=== PATIENT | female | born 1950 | race Caucasian/White ===

== ENCOUNTER 2017-03-07 15:27 | Emergency (ER) | payer BC, MEDICARE ==
[2017-03-07 15:34] VITALS: BP 132/67
[2017-03-07] MEDS ORDERED: Tetan/Diph/Pertus SYR(Tdap)* 0.5 ML SYR(BOOSTRIX) use SYR IM ONE (15:45)
--- NOTE | 2017-03-07 15:49 | UC ---
Minor Trauma HPI - History of Current Complaint Chief Complaint: CHARYkin Stated Complaint: STEPPED ON KENNY NAIL Hx Obtained From: Patient ?: No Onset/Duration: Sudden Onset - stepped on a kenny nail 30 minutes ago., Still Present Onset Of Pain: Immediate Severity Initially: Mild Severity Currently: Mild Mechanism Of Injury: Penetrating Trauma - nail in a board was stepped on. Aggravating Factor(s): Ambulation, Weight Bearing Alleviating Factor(s): Rest Associated Signs And Symptoms: Positive: Other: - bleeding Related History: Negative: Similar Episode, Occupational Injury - Risk Factors Penetrating Injury Risk Factors: Negative Compartment Syndrome Risk Factors: Pain - Allergies/Home Medications Allergies/Adverse Reactions: Allergies Allergy/AdvReac Type Severity Reaction Status Date / Time No Known Allergies Allergy Verified 03/07/17 15:37 PMH/Surg Hx/FS Hx/Imm Hx Endocrine History: Dyslipidemia Cardiovascular History: Hypertension - Surgical History Surgical History: Yes Surgery Procedure, Year, and Place: tubal, appe - Family History Known Family History: Positive: Cardiac Disease, Hypertension Negative: Diabetes - Social History Occupation: Retired Lives: With Family Alcohol Use: Occasionally Substance Use Type: None Smoking Status (MU): Never Smoked Tobacco Have You Smoked in the Last Year: No - Immunization History Most Recent Tetanus Shot: unknown Review of Systems Skin: Other - puncture wound left foot. All Other Systems Reviewed And Are Negative: Yes Physical Exam Triage Information Reviewed: Yes Appearance: Well-Appearing, No Pain Distress, Well-Nourished Vital Signs: Initial Vital Signs Temp 97.3 F 03/07/17 15:31 Pulse 96 03/07/17 15:31 Resp 18 03/07/17 15:31 BP 132/67 03/07/17 15:31 Pulse Ox 99 03/07/17 15:31 Vital Signs Reviewed: Yes Eyes: Positive: Conjunctiva Clear Neck exam: Normal Respiratory Exam: Normal Cardiovascular Exam: Normal Musculoskeletal Exam: Normal Neurological Exam: Normal Psychological Exam: Normal Skin: Positive: Other - Puncture wound over the 1st metatarsal head. small abrasion over the instep. Minor Trauma Course/Dx - Differential Dx/Diagnosis Differential Diagnosis/HQI/PQRI: Abrasion(s), Contusion(s), Laceration(s) Provider Diagnoses: Puncture wound left foot Discharge - Discharge Plan Condition: Stable Disposition: HOME Prescriptions: Cephalexin CAP* [Keflex 500 CAP*] 500 mg PO QID #10 cap Patient Education Materials: Puncture Wound (ED), Cephalexin (By mouth), Diphtheria/Acellular Pertussis/Tetanus Vaccine (By injection) Images Feet (Multiple View): 1 - Puncture wound 2 - partial thickness abrasion
== END 2017-03-07 16:09 | disposition home or self-care (01) ==
LOC: UCEAST 15:27
DX: S91.332A Puncture wound without foreign body, left foot, initial encounter (principal); W22.8XXA Striking against or struck by other objects, initial encounter; Y93.9 Activity, unspecified; Y92.9 Unspecified place or not applicable; Y99.9 Unspecified external cause status; Z23 Encounter for immunization; I10 Essential (primary) hypertension; E78.5 Hyperlipidemia, unspecified
CPT/HCPCS: 90471; 90715; 96372; 99203; G0463

== ENCOUNTER 2017-11-16 11:08 | Emergency (ER) | payer MEDICARE, BC ==
[2017-11-16 11:50] VITALS: BP 152/73
--- NOTE | 2017-11-16 12:00 | UC ---
Lower Extremity/Ankle HPI - HPI Summary HPI Summary: Pt presents with right knee and ankle pain s/p falling last night. She tells me that she was walking down her basement steps and missed the last step. Turned her right ankle and knee and landed awkwardly on her right knee. Took ibuprofen last night with good relief, but was still painful this morning so she wanted to be sure she didn't break anything. She is able to ambulate without assistance with only mild pain. Denies numbness or tingling. - History of Current Complaint Chief Complaint: UCLowerExtremity Stated Complaint: FELL ANKLE/THUMB/KNEE INJURY Time Seen by Provider: 11/16/17 12:00 Hx Obtained From: Patient Severity Initially: Mild Severity Currently: Mild Pain Intensity: 3 Pain Scale Used: 0-10 Numeric Able to Bear Weight: Yes - Allergies/Home Medications Allergies/Adverse Reactions: Allergies Allergy/AdvReac Type Severity Reaction Status Date / Time No Known Allergies Allergy Verified 11/16/17 11:50 Home Medications: Home Medications Glucosamine Sulfate Dipot Chlr [Glucosamine] 1 tab PO DAILY 11/16/17 [History Confirmed 11/16/17] Multivitamin [Multivitamins] 1 cap DAILY 11/16/17 [History Confirmed 11/16/17] PMH/Surg Hx/FS Hx/Imm Hx Previously Healthy: Yes Cardiovascular History: Hypertension - Surgical History Surgical History: Yes Surgery Procedure, Year, and Place: tubal, appe - Family History Known Family History: Positive: Cardiac Disease, Hypertension Negative: Diabetes - Social History Occupation: Retired Lives: With Family Alcohol Use: Occasionally Substance Use Type: None Smoking Status (MU): Never Smoked Tobacco Have You Smoked in the Last Year: No - Immunization History Most Recent Tetanus Shot: unknown Review of Systems Constitutional: Negative Skin: Negative Respiratory: Negative Cardiovascular: Negative Gastrointestinal: Negative Neurovascular: Negative Musculoskeletal: Other: - Right knee and ankle pain Neurological: Negative Psychological: Negative All Other Systems Reviewed And Are Negative: Yes Physical Exam Triage Information Reviewed: Yes Appearance: Well-Appearing, No Pain Distress, Well-Nourished Vital Signs: Initial Vital Signs Temp 98.2 F 11/16/17 11:45 Pulse 84 11/16/17 11:45 Resp 16 11/16/17 11:45 BP 152/73 11/16/17 11:45 Pulse Ox 99 11/16/17 11:45 Vital Signs Reviewed: Yes Neck: Positive: Supple, Nontender, No Lymphadenopathy Respiratory: Positive: Normal breath sounds, No respiratory distress, No accessory muscle use Cardiovascular: Positive: RRR, No Murmur, Pulses Normal - Right DP and TP, Brisk Capillary Refill - Right foot Musculoskeletal: Positive: Strength Intact - Right knee and ankle, ROM Intact - Right knee and ankle, Edema @ - Right medial ankle, Other: - Right ankle: TTP over posterior and superior medial malleolus. No obvious bony deformities. Right knee: Mild edema. NTTP Neurological: Positive: Alert, Other: - Sensations intact right LE Psychological: Positive: Age Appropriate Behavior Skin: Negative: rashes, significant lesion(s) Lower Extremity Course/Dx - Course Course Of Treatment: Knee and ankle XR: IMPRESSION: NO ACUTE OSSEOUS INJURY. IF SYMPTOMS PERSIST, RECOMMEND REPEAT IMAGING. Suspect ankle sprain/knee contusion. Gel ankle splint and RICE therapy - Differential Dx/Diagnosis Provider Diagnoses: Right ankle sprain. Right knee contusion Discharge - Discharge Plan Condition: Stable Disposition: HOME Patient Education Materials: Ankle Sprain (ED) Referrals: Esthela Hauser NP [Primary Care Provider] - Additional Instructions: If you develop a fever, shortness of breath, chest pain, new or worsening symptoms - please call your PCP or go to the ED. Your blood pressure was mildly elevated at todays visit. Please see your primary provider within 4 weeks for recheck and re-evaluation. 1) Rest, Ice, and elevate your knee/ankle as much as possible over the next 24- 48 hours. 2) May take ibuprofen 600mg every 6-8 hours as needed for pain and swelling
--- NOTE | 2017-11-16 12:57 | RAD ---
HISTORY: Right ankle pain, fall COMPARISONS: None VIEWS: 3, Frontal, lateral, and oblique views of the right ankle FINDINGS: BONE DENSITY: Normal. BONES: There is no displaced fracture. There are calcaneal enthesophytes. JOINTS: There is no arthropathy. ALIGNMENT: There is no dislocation. SOFT TISSUES: Unremarkable. OTHER FINDINGS: None. IMPRESSION: NO ACUTE OSSEOUS INJURY. IF SYMPTOMS PERSIST, RECOMMEND REPEAT IMAGING.
--- NOTE | 2017-11-16 12:58 | RAD ---
HISTORY: Right knee pain, fall COMPARISONS: None VIEWS: 4, Frontal, lateral, axial, and oblique views FINDINGS: BONE DENSITY: Normal. BONES: There is no displaced fracture. There are superior and inferior patellar enthesophytes. JOINTS: There is mild tricompartmental osteoarthritis. There is no suprapatellar joint effusion or lipohemarthrosis. ALIGNMENT: There is no dislocation. SOFT TISSUES: Unremarkable. OTHER FINDINGS: None. IMPRESSION: NO ACUTE OSSEOUS INJURY. IF SYMPTOMS PERSIST, RECOMMEND REPEAT IMAGING.
== END 2017-11-16 13:26 | disposition home or self-care (01) ==
LOC: UCEAST 11:08
DX: S93.401A Sprain of unspecified ligament of right ankle, initial encounter (principal); S80.01XA Contusion of right knee, initial encounter; W10.9XXA Fall (on) (from) unspecified stairs and steps, initial encounter; Y93.89 Activity, other specified; Y92.008 Other place in unspecified non-institutional (private) residence as the place of occurrence of the external cause; I10 Essential (primary) hypertension
CPT/HCPCS: 99212; G0463

== ENCOUNTER 2018-05-18 10:24 | Inpatient (IN) | payer MEDICARE, BC ==
--- NOTE | 2018-05-10 13:14 | HP ---
HISTORY AND PHYSICAL: DATE OF ADMISSION/SURGERY: 05/18/18 DATE OF OFFICE VISIT: 05/10/18 SURGEON: Sallie Baugh MD * (DICTATED BY TERRANCE ALFORD) PROCEDURE: Right total knee arthroplasty. CHIEF COMPLAINT: Right knee pain. HISTORY OF PRESENT ILLNESS: Ms. Maguire is a 67-year-old female with complaints of right knee pain. She has failed conservative treatment and elected to proceed with a right total knee arthroplasty, which is scheduled for 05/18/18. PAST MEDICAL HISTORY: Hypertension, high cholesterol. PAST SURGICAL HISTORY: Tubal ligation. CURRENT MEDICATIONS: 1. Meloxicam 15 mg daily. 2. Fosinopril sodium 10 mg daily. 3. Atorvastatin calcium 10 mg daily. 4. Mariia. 5. Glucosamine/chondroitin. 6. Aspirin 81 mg daily. ALLERGIES: To DAIRY. FAMILY HISTORY: Heart disease, cancer, and aneurysm. SOCIAL HISTORY: She is a 67-year-old female. She lives with her . She does not smoke or use drugs. Uses occasional alcohol. REVIEW OF SYSTEMS: A complete 14-point review of systems was reviewed with the patient. It was negative for DVT, PE, hepatitis, HIV, or anesthesia problems. PHYSICAL EXAMINATION GENERAL: She is well-developed, well-nourished, in no acute distress. VITAL SIGNS: She stands 5 feet 5 inches tall, weighs 190 pounds, blood pressure 124/60, heart rate 72. HEENT: Normocephalic, atraumatic. NECK: Supple. No palpable lymph nodes. PULMONARY: Lungs are clear to auscultation bilaterally. CARDIO: Regular rate and rhythm. Strong S1, S2. ABDOMEN: Soft, nontender, nondistended. NEUROLOGICAL: She is alert and oriented x3. MUSCULOSKELETAL: Right lower extremity: The skin is intact. There are no open wounds or abrasions. There is a moderate joint effusion. She has some tenderness over the medial and lateral joint line. Range of motion is 10 to 130 degrees of flexion with patellofemoral crepitus. No varus or valgus instability. 2+ dorsalis tibialis pulse. Intact sensation in her lower extremity. Muscle group strengths are intact at 5/5. ASSESSMENT AND PLAN: Ms. Maguire is a 67-year-old female with end-stage osteoarthritis of the right knee. She has failed conservative treatment and elected to proceed with a right total knee arthroplasty, which is scheduled for 05/18/18, with Dr. Baugh. Dr. Baugh discussed the risks and benefits of the surgery at today's visit and all of her questions were answered. She will follow up with Dr. Baugh 2 weeks after the surgery. TERRANCE ALFORD [id number]/[facility] #: [id number] [facility]
[~2018-05-18 10:24] MED LIST: Buffered Lidocaine 0.9% SYRIN* 5 ML/SYR SYRINGE INTRADERM ONE; Dexamethasone IV* 4 MG/ML 1 ML (4 MG) IV SLOW PU ONE; Famotidine IV* 10 MG/ML 2 ML (20 mg) IV ONE; ROPIVACAINE 5 MG/ML 30 ML BTL (0.5%) ONE
--- OUTSIDE RECORDS SUMMARY | 2018-05-18 10:28 | XMS REPORT ---
:1950 External Reference #:[id number] Author Organization [facility] Address [address] [place] [address] [place] [address] Phone [phone] Care Team Providers Name Role Phone Karyn Simpson MD Primary Care Physician Unavailable Payers Type Date Identification Numbers Payment Provider Subscriber Medicare Primary Policy Number: [id number] Medicare Edith Maguire PayID: [id number] [address] [place] [address] Medigap Part B Expires: 2018 Policy Number: [id number] Medicare Edith Maguire PayID: [id number] [address] [place] [address] Medigap Part B Policy Number: [id number] [facility] Edith Maguire PayID: [id number] [address] [place] [address] Problems Date Description Provider Status Onset: 03/08/2018 Essential hypertension Alexander Bosch NP Active Onset: 03/08/2018 Hyperlipidemia Alexander Bosch NP Active Onset: 03/08/2018 Chronic back pain Alexander Bosch NP Active Onset: 03/17/2018 Localized, primary osteoarthritis Sallie Baugh M.D. Active Family History Date Family Member(s) Problem(s) Comments Father due to Lung Cancer () Father Heart Disease Mother Alzheimer's Disease Mother Heart Disease 89 Siblings 4 3 sisters: 1 with heart disease; 1 brain aneurysm 1 brother: [place] Social History Type Date Description Comments Marital Status Lives With Spouse Occupation Retired ETOH Use Occasionally consumes alcohol Smoking Patient has never smoked Exercise Type/Frequency Exercises sporadically Allergies, Adverse Reactions, Alerts Date Description Reaction Status Severity Comments 03/08/2018 Dairy stomach pains, diarrhea active Medications Medication Date Status Form Strength Qnty SIG Indications Ordering Provider Meloxicam Active Tablets 15mg 14tabs take 1 Sallie 018 tab by edin Baugh M.D. with food once a day Fosinopril Active Tablets 10mg 90tabs 1 by Alexander Sodium 018 mouth Hiro, [employer] every day Atorvastatin Active Tablets 10mg 90tabs 1 by Alexander Calcium 018 mouth JYOTI Bosch every day Mariia Allergy Active Tablets 180mg 1 by Unknown 000 mouth every day Glucosamine Active Capsules 1500Com 1 by Unknown Chondroitin 000 mouth 1500 Complex twice a day Aspirin 81 Low Active Chewtabs 81mg 1 by Unknown Dose 000 mouth nightly Medications Administered in Office Medication Date Status Form Strength Qnty SIG Indications Ordering Provider Depomedrol Administered Injection Sallie 40MG 018 Liliya Baugh Depomedrol Administered Injection Sallie 40MG 018 Liliya Baugh Vital Signs Date Vital Result Comment 05/10/2018 Height 65 inches 5'5" Weight 190.00 lb Heart Rate 72 /min BP Systolic 124 mmHg BP Diastolic 60 mmHg BMI (Body Mass Index) 31.6 kg/m2 04/28/2018 Height 65 inches 5'5" Weight 193.00 lb BP Systolic 142 mmHg BP Diastolic 82 mmHg Respiratory Rate 18 /min Body Temperature 97.1 F Pain Level 1 BMI (Body Mass Index) 32.1 kg/m2 04/15/2018 Height 65 inches 5'5" Weight 193.00 lb Heart Rate 68 /min BP Systolic 128 mmHg BP Diastolic 66 mmHg Body Temperature 97.2 F O2 % BldC Oximetry 96 % BMI (Body Mass Index) 32.1 kg/m2 03/17/2018 Height 65 inches 5'5" Weight 195.00 lb BP Systolic 111 mmHg BP Diastolic 76 mmHg Respiratory Rate 15 /min Pain Level 5 BMI (Body Mass Index) 32.4 kg/m2 03/08/2018 Height 65.5 inches 5'5.50" Weight 199.50 lb Heart Rate 72 /min BP Systolic 171 mmHg BP Diastolic 85 mmHg BP Systolic Recheck 160 mmHg BP Diastolic Recheck 88 mmHg Body Temperature 97.5 F O2 % BldC Oximetry 99 % BMI (Body Mass Index) 32.7 kg/m2 Results Test Date Test Result H/L Range Note Comp Metabolic Panel 05/10/2018 Sodium 141 mmol/L 135-145 Potassium 4.2 mmol/L 3.5-5.0 Chloride 103 mmol/L 101-111 Co2 Carbon Dioxide 29 mmol/L 22-32 Anion Gap 9 mmol/L 2-11 Glucose 93 mg/dL 70-100 Blood Urea Nitrogen 18 mg/dL 6-24 Creatinine 0.73 mg/dL 0.51-0.95 BUN/Creatinine Ratio 24.7 High 8-20 Calcium 9.7 mg/dL 8.6-10.3 Total Protein 6.9 g/dL 6.4-8.9 Albumin 4.4 g/dL 3.2-5.2 Globulin 2.5 g/dL 2-4 Albumin/Globulin Ratio 1.8 1-3 Total Bilirubin 0.70 mg/dL 0.2-1.0 Alkaline Phosphatase 79 U/L 34-104 Alt 17 U/L 7-52 Ast 19 U/L 13-39 Egfr Non- 79.3 >60 Egfr 95.9 >60 1 CBC Auto Diff 05/10/2018 White Blood Count 7.2 10^3/uL 3.5-10.8 Red Blood Count 4.29 10^6/uL 4.00-5.40 Hemoglobin 13.5 g/dL 12.0-16.0 Hematocrit 40 % 35-47 Mean Corpuscular Volume 92 fL 80-97 Mean Corpuscular Hemoglobin 31 pg 27-31 Mean Corpuscular HGB Conc 34 g/dL 31-36 Red Cell Distribution Width 14 % 10.5-15 Platelet Count 276 10^3/uL 150-450 Mean Platelet Volume 6.8 um3 Low 7.4-10.4 Abs Neutrophils 4.8 10^3/uL 1.5-7.7 Abs Lymphocytes 1.7 10^3/uL 1.0-4.8 Abs Monocytes 0.5 10^3/uL 0-0.8 Abs Eosinophils 0.1 10^3/uL 0-0.6 Abs Basophils 0.1 10^3/uL 0-0.2 Abs Nucleated RBC 0 10^3/uL Granulocyte % 67.4 % 38-83 Lymphocyte % 23.1 % Low 25-47 Monocyte % 6.9 % 0-7 Eosinophil % 1.8 % 0-6 Basophil % 0.8 % 0-2 Nucleated Red Blood Cells % 0 Inr/Protime 05/10/2018 Inr 0.87 0.77-1.02 Laboratory test finding 05/10/2018 Partial Thrombo Time 30.8 seconds 26.0 -36.3 PTT Type & Screen 05/10/2018 Patient Blood Type A Positive Antibody Screen NEGATIVE Urinalysis Profile 05/10/2018 Urine Color Yellow Urine Appearance Cloudy Urine Specific Colbert 1.020 1.010-1.030 Urine pH 5.0 5-9 Urine Urobilinogen Negative Negative Urine Ketones Negative Negative Urine Protein Negative Negative Urine Leukocytes Negative Negative Urine Blood Negative Negative * * Negative 2 Urine Nitrite Negative Negative Urine Bilirubin Negative Negative Urine Glucose Negative Negative 1 Because ethnic data is not always readily available, this report includes an eGFR for both -Americans and non- Americans. The National Kidney Disease Education Program (NKDEP) does not endorse the use of the MDRD equation for patients that are not between the ages of 18 and 70, are , have extremes of body size, muscle mass, or nutritional status, or are non- or non-. According to the National Kidney Foundation, irrespective of diagnosis, the stage of the disease is based on the level of kidney function: Stage Description GFR(mL/min/1.73 m(2)) 1 Kidney damage with normal or decreased GFR 90 2 Kidney damage with mild decrease in GFR 60-89 3 Moderate decrease in GFR 30-59 4 Severe decrease in GFR 15-29 5 Kidney failure <15 (or dialysis) 2 *Ascorbic acid is present which may interfere with detection of blood. Procedures Date CPT Code Description Status Comment 04/28/2018 Inj/Aspir Major JT Or Bursa Completed W/ US 03/17/2018 08492 Inject/Drain Joint/Bursa Completed Major W/O US 03/28/2013 44987 Myocardial Perfusion Imaging Completed Tomographic (Spect) Multiple Studies 03/27/2013 25585 Treadmill Interp/Report Only Completed 03/27/2013 13346 Stress Test Supervsn W/Out Completed I/R 10/05/2007 Colonoscopy Completed Per past records, 5 yr f/u recommended Encounters Type Date Location Provider CPT E/M Dx Office Visit 04/28/2018 [facility] Sallie Amauri, M.D. 58269 M25.561 10:15a [facility] M25.551 M16.11 M17.11 Office Visit 04/15/2018 9:20a [facility] [place] [address] I10 - [place] Office Visit 03/17/2018 9:30a [facility] Sallie Baugh M.D. 85932 M25.561 [facility] M25.461 M17.11 W19.xxxA Office Visit 03/08/2018 3:00p [facility] [place] [address] [address] [place] M25.561 W19.xxxA Office Visit 03/27/2013 1:20p [facility] Bart Lundy M.D. 07307 786.51 Hospitalists 401.9 272.4 Office Visit 03/27/2013 11:07a [facility] Carolynn Kathleen, [address] 794.31 Liliya 786.50 401.1 272.4 Office Visit 03/26/2013 1:19p [facility], [place] [address] 786.51 Hospitalists 401.9 272.4 Plan of Care Future Appointment(s):05/28/2018 10:45 am - Sallie Baugh M.D. at [facility]05/12/2018 2:00 pm - Alexander Bosch NP at [facility]05/18/2018 11:30 am - Christopher Jordan PA-C at [facility]05/18/2018 11:30 am - TERRANCE Tomlinson at [facility]05/18/2018 11:30 am - Sallie Baugh M.D. at [facility]04/18/2019 11:00 am - Alexander Bosch NP at [facility]05/10/2018 - Sallie Baugh M.D.M25.561 Pain in right kneeFollow up: Follow up: 2 weeks after ytnyngyV68.461 Effusion, right kneeM17.11 Unilateral primary osteoarthritis, right knee
--- OUTSIDE RECORDS SUMMARY | 2018-05-18 10:28 | XMS REPORT ---
:1950 External Reference #:[id number] Author Organization [facility] Address [address] [place] [address] [place] [address] Phone [phone] Care Team Providers Name Role Phone Karyn Simpson MD Primary Care Physician Unavailable Payers Type Date Identification Numbers Payment Provider Subscriber Medicare Primary Policy Number: [id number] Medicare Edith Maguire PayID: [id number] [address] [place] [address] Medigap Part B Policy Number: [id number] [facility] Edith Maguire PayID: [id number] [address] [place] [address] Problems Date Description Provider Status Onset: 03/08/2018 [...] heart disease; 1 brain aneurysm 1 brother: [place] Social History Type Date Description Comments Marital [...] 90tabs 1 by Alexander Sodium 018 mouth JYOTI Bosch every day Atorvastatin Active Tablets 10mg 90tabs [...] Baugh Vital Signs Date Vital Result Comment 04/28/2018 Height 65 inches 5'5" Weight 193.00 [...] BMI (Body Mass Index) 32.7 kg/m2 Results Description No Information Procedures Date CPT Code Description Status 04/28/2018 Inj/Aspir Major JT Or Bursa W/ US Completed 03/17/2018 Inject/Drain Joint/Bursa Major W/O US Completed 03/28/2013 97360 Myocardial Perfusion Imaging Tomographic (Spect) Completed Multiple Studies 03/27/2013 23756 Treadmill Interp/Report Only Completed 03/27/2013 63864 Stress Test Supervsn W/Out I/R Completed Encounters Type Date Location Provider CPT E/M Dx Office Visit 04/28/2018 [facility] Sallie Baugh M.D. 63767 M25.561 10:15a Of [facility] M25.551 M16.11 M17.11 Office Visit 04/15/2018 9:20a [facility] [place] [address] [address] - [place] Office Visit 03/17/2018 9:30a [facility] Sallie Baugh M.D. 57854 M25.561 James M25.461 M17.11 W19.xxxA Office Visit 03/08/2018 3:00p [facility] [place] [address] [address] [place] M25.561 W19.xxxA Office Visit 03/27/2013 1:20p [facility], Bart Lundy M.D. 03569 786.51 Hospitalists 401.9 272.4 Office Visit 03/27/2013 11:07a [facility] Carolynn Kathleen, [address] 794.31 Liliya 786.50 401.1 272.4 Office Visit 03/26/2013 1:19p [facility], [place] [address] 786.51 Hospitalists 401.9 272.4 Plan of Care Future Appointment(s):05/10/2018 9:15 am - Sallie Baugh M.D. at [facility]/18/2019 11:00 am - Alexander Bosch NP at [facility] Internal Medicine [facility]04/28/2018 - Sallie Baugh M.D.M25.561 Pain in right kneeFollow up: Follow up: 7-10 days before yghckcgD34.551 Pain in right hipNew Xrays:Hip Right 2 Views And Pelvis 54743 - 29745N27.11 Unilateral primary osteoarthritis, right hipM17.11 Unilateral primary osteoarthritis, right knee
--- OUTSIDE RECORDS SUMMARY | 2018-05-18 10:28 | XMS REPORT ---
:1950 External Reference #:[id number] Author Organization [facility] Address [address] [facility] [address] [place] [address] Phone [phone] Care Team Providers Name Role Phone Karyn Simpson MD Primary Care Physician Unavailable Payers Type Date Identification Numbers Payment Provider Subscriber Medicare Primary Policy Number: [id number] Medicare Edith Maguire PayID: [id number] [address] [place] [address] Medigap Part B Expires: 2018 Policy Number: [id number] Medicare Edith Maguire PayID: [id number] [address] [place] [address] Medigap Part B Policy Number: [id number] [facility] Edith Maguire PayID: [id number] [address] [place] [address] Problems Date Description Provider Status Onset: 03/08/2018 Essential hypertension Alexnader Bosch NP Active Onset: 03/08/2018 Hyperlipidemia Alexander [...] heart disease; 1 brain aneurysm 1 brother: [place] Social History Type Date Description Comments Marital [...] 1 by Alexander Sodium 018 mouth Hiro, [employer] every day Atorvastatin Active Tablets 10mg 90tabs [...] Information Procedures Date CPT Code Description Status Comment 04/28/2018 Inj/Aspir Major JT Or Bursa Completed W/ US 03/17/2018 Inject/Drain Joint/Bursa Completed Major W/O US 03/28/2013 35501 Myocardial Perfusion Imaging Completed Tomographic (Spect) Multiple Studies 03/27/2013 08150 Treadmill Interp/Report Only Completed 03/27/2013 04704 Stress Test Supervsn W/Out Completed I/R 10/05/2007 Colonoscopy Completed Per past records, 5 yr f/u recommended Encounters Type Date Location Provider CPT E/M Dx Office Visit 04/28/2018 [facility] Sallie Baugh M.D. 15758 M25.561 10:15a [facility] M25.551 M16.11 M17.11 Office Visit 04/15/2018 9:20a [facility] [place] [address] I10 [facility] Office Visit 03/17/2018 9:30a [facility] Sallie Baugh M.D. 61603 M25.561 C.MGuido M25.461 M17.11 W19.xxxA Office Visit 03/08/2018 3:00p [facility] [place] [address] M25.561 W19.xxxA Office Visit 03/27/2013 1:20p [facility],vianca Lundy M.D. 62447 786.51 Hospitalists 401.9 272.4 Office Visit 03/27/2013 11:07a [facility] Ryantayovani Kathleen [address] 794.31 Liliya 786.50 401.1 272.4 Office Visit 03/26/2013 1:19p [facility],[place] [address] 786.51 Hospitalists 401.9 272.4 Plan of Care Future Appointment(s):05/28/2018 10:45 am - Sallie Baugh M.D. at [facility].M.AMichael05/12/2018 2:00 pm - Alexander Bosch NP at [facility]05/18/2018 11:30 am - Christopher Jordan PA-C at [facility].05/18/2018 11:30 am - TERRANCE Tomlinson at [facility].05/18/2018 11:30 am - Sallie Baugh M.D. at [facility].04/18/2019 11:00 am - Alexander Bosch NP at [facility]05/10/2018 - Sallie Baugh M.D.M25.561 Pain in right kneeFollow up: Follow up: 2 weeks after inapdffU15.461 Effusion, right kneeM17.11 Unilateral primary osteoarthritis, right knee
--- OUTSIDE RECORDS SUMMARY | 2018-05-18 10:28 | XMS REPORT ---
:1950 External Reference #:[id number] Author Organization [facility] Address [address] [place] [address] [place] [address] Phone [phone] Care Team Providers Name Role Phone Karyn Simpson MD Primary Care Physician Unavailable Payers Type Date Identification Numbers Payment Provider Subscriber Medicare Primary Policy Number: [id number] Medicare Edith Maguire PayID: [id number] [address] [place] [address] Medigap Part B Expires: 2018 Policy Number: [id number] Medicare Edith Maguire PayID: [id number] [address] [place] [address] Medigap Part B Policy Number: [id number] [facility] Edith Maguire PayID: [id number] [address] [place] [address] Problems Date Description Provider Status Onset: 03/08/2018 Essential hypertension Alexander Bosch NP Active Onset: 03/08/2018 Hyperlipidemia Alexander Bosch NP Active Onset: 03/08/2018 Chronic back pain Alexander Bosch NP Active Onset: 03/17/2018 Localized, primary osteoarthritis Sallie aBugh M.D. Active Family History Date Family Member(s) Problem(s) Comments Father due to Lung Cancer () Father Heart Disease Mother Alzheimer's Disease Mother Heart Disease 89 Siblings 4 3 sisters: 1 with heart disease; 1 brain aneurysm 1 brother: [place] Social History Type Date Description Comments Marital Status Lives With Spouse Occupation Retired ETOH Use Occasionally consumes alcohol Smoking Patient has never smoked Recreational Drug Use Never Used Drugs Daily Caffeine Consumes on average 2 cups of regular coffee per day Exercise Type/Frequency Exercises sporadically hiking , walking house chores, takes care of grandkids Allergies, Adverse Reactions, Alerts Date Description Reaction Status Severity Comments 03/08/2018 Dairy stomach pains, diarrhea active Medications Medication Date Status Form Strength Qnty SIG Indications Ordering Provider Meloxicam Active Tablets 15mg 14tabs take 1 Sallie 018 tab by edin Baugh M.DMichael with food once a day Fosinopril Active Tablets 10mg 90tabs 1 by Alexander Sodium 018 mouth Hiro, RN MEDICARE every day Atorvastatin Active Tablets 10mg 90tabs 1 by Alexander Calcium 018 mouth Hiro, RN MEDICARE every day Mariia Allergy Active Tablets 180mg 1 by Unknown 000 mouth every day Glucosamine Active Capsules 1500Com 1 by Unknown Chondroitin 000 mouth 1500 Complex twice a day Aspirin 81 Low Active Chewtabs 81mg 1 by Unknown Dose 000 mouth nightly Tylenol PM Active Tablets take one Unknown 000 tablet/ca psule by mouth at bedtime. as needed for pain Medications Administered in Office Medication Date Status Form Strength Qnty SIG Indications Ordering Provider Depomedrol Administered Injection Sallie 40MG Andres Baugh M.D. Depomedrol Administered Injection Sallie 40MG 018 Liliya Baugh Immunizations CPT Code Status Date Vaccine Lot # [id number] Given 05/12/2017 Tetanus And Diptheria (Td) For Adult Use Preservative Free Vital Signs Date Vital Result Comment 05/12/2018 Height 65 inches 5'5" Weight 189.00 lb Heart Rate 84 /min BP Systolic Sitting 118 mmHg BP Diastolic Sitting 62 mmHg O2 % BldC Oximetry 99 % BMI (Body Mass Index) 31.4 kg/m2 05/10/2018 Height 65 inches 5'5" Weight 190.00 [...] Color Yellow Urine Appearance Cloudy Urine Specific [place] 1.020 1.010-1.030 Urine pH 5.0 5-9 Urine Urobilinogen Negative Negative Urine Ketones Negative Negative Urine Protein Negative Negative Urine Leukocytes Negative Negative Urine Blood Negative Negative * * Negative 2 Urine Nitrite Negative Negative Urine Bilirubin Negative Negative Urine Glucose Negative Negative Urine Culture And Sensitivities 05/10/2018 Urine Culture SEE RESULT BELOW 3 1 Because ethnic data is not always [...] which may interfere with detection of blood. 3 SEE RESULT BELOW Name: EDITH MAGUIRE : [address]: Sallie Baugh MD Acct: [id number] Unit: [id number] AGE: 67 Location: [facility] Re05/10/18 SEX: F Status: REG REF SPEC: [id number] JOEL: 05/10/[address] [facility] [address]: Sallie Baugh MD REQ: [id number] RECD: 05/10/18 STATUS: EVELYN CANTOR DR: Alexander Bosch RN MEDICARE _ SOURCE: URINE SPDESC: ORDERED: Urine Culture Procedure Result Reported Site Urine Culture Final 05/11/18- 0910 ML No growth of clinically significant organisms * ML - Main Lab . END OF REPORT DEPARTMENT OF PATHOLOGY, [address] [place] [address] Narinder Spear M.D. Director [facility] # [id number] Procedures Date CPT Code Description Status Comment 04/28/2018 Inj/Aspir Major JT Or Bursa Completed W/ US 03/17/2018 Inject/Drain Joint/Bursa Completed Major W/O US 03/28/2013 35307 Myocardial Perfusion Imaging Completed Tomographic (Spect) Multiple Studies 03/27/2013 11377 Treadmill Interp/Report Only Completed 03/27/2013 43022 Stress Test Supervsn W/Out Completed I/R 10/05/2007 Colonoscopy Completed Per past records, 5 yr f/u recommended Encounters Type Date Location Provider CPT E/M Dx Office Visit 04/28/2018 [facility] Sallie Baugh M.D. 15324 M25.561 10:15a Of [facility]. M25.551 M16.11 M17.11 Office Visit 04/15/2018 9:20a [facility] [place] [address] I10 - Mark Office Visit 03/17/2018 9:30a [facility] Sallie Baugh M.D. 05629 M25.561 C.M.A. M25.461 M17.11 W19.xxxA Office Visit 03/08/2018 3:00p [facility] Internal [place] [address] I1Gwendolyn Flores M25.561 W19.xxxA Office Visit 03/27/2013 1:20p [facility],pc Bart Lundy M.D. 51252 786.51 Hospitalists 401.9 272.4 Office Visit 03/27/2013 11:07a [facility] Elsy Kathleen, 28255 794.31 MPeggy 786.50 401.1 272.4 Office Visit 03/26/2013 1:19p [facility],pc Jodie Morales, 68381 786.51 Hospitalists 401.9 272.4 Plan of Care Future Appointment(s):05/28/2018 10:45 am - Sallie Baugh M.D. at [facility].05/18/2018 11:30 am - Christopher Jordan PA-C at [facility].05/18/2018 11:30 am - TERRANCE Tomlinson at [facility].05/18/2018 11:30 am - Sallie Baugh M.D. at [facility].04/18/2019 11:00 am - Alexander Bosch NP at [facility] Internal Medicine - Nrobnqkyc75/08/2018 - Jacy Schaffer M.D.Z01.818 Encounter for other preprocedural examinationComments:Undergoing elective R knee replacement surgery , no acute coronary syndrome , low risk for major adverse events , advised patient to proceed with upcoming procedure, to consider anticoagulation after the knee surgery given immobilization per Dr. Baugh Stop Meloxicam and aspirin at least a week before the surgery , use tylenol for pain CC to Dr. BaughM17.11 Unilateral primary osteoarthritis, right kneeComments:plan per Dr. BaughI10 Essential (primary) uvflduymjnteS11.5 Hyperlipidemia, unspecifiedComments:stable on statin
[2018-05-18] MEDS ORDERED: Dexamethasone IV* 4 MG/ML 1 ML (4 MG) ONE (10:40)
[2018-05-18] MEDS ORDERED: Famotidine IV* 10 MG/ML 2 ML (20 mg) ONE (10:40)
[2018-05-18] MEDS ORDERED: ceFAZolin 2 GM PREMIX (*) 2 GM/50 ML BAG IVPB ONE (10:41)
[2018-05-18] MEDS ORDERED: Tranexamic Acid 1,000 MG/10 ML 1,000 MG in NS 0.9% 100 ML* 100 ML IV ONE (11:00)
[2018-05-18] MEDS ORDERED: Midazolam* 1 MG/ML 2 ML VIAL (2 MG) ONE (11:03)
[2018-05-18] MEDS ORDERED: fentaNYL* 50 MCG/ML 2 ML VIAL (100 MCG VIAL) ONE ×3 (11:03→16:25)
[2018-05-18] MEDS ORDERED: Gabapentin CAP(*) 300 MG PO ONE (12:12)
[2018-05-18] MEDS ORDERED: celeCOXIB CAP* 200 MG PO ONE (12:12)
[2018-05-18] MEDS ORDERED: ROPIVACAINE 5 MG/ML 30 ML BTL (0.5%) ONE (12:27)
[2018-05-18] MEDS ORDERED: Gabapentin CAP(*) 300 MG ONE (12:29)
[2018-05-18] MEDS ORDERED: celeCOXIB CAP* 100 MG ONE (12:29)
[2018-05-18] MEDS ORDERED: Lidocaine 2% PF * 5 ML VIAL ONE (12:29)
[2018-05-18] MEDS ORDERED: KETAMINE HCL* 50 MG/ML 10 ML VIAL ONE (13:57)
[2018-05-18] MEDS ORDERED: HYDROmorphone INJ* 0.5 MG/0.5 ML SYRINGE IV PRN (15:09)
[2018-05-18] MEDS ORDERED: DiMENhydriNATE IV* 50 MG/ML VIAL IV PUSH PRN (15:09)
[2018-05-18] MEDS ORDERED: Naloxone* 0.4 MG/ML 1 ML VIAL IV PRN (15:09)
[2018-05-18] MEDS ORDERED: Ondansetron INJ* 2 MG/ML VIAL ONE (15:10)
[2018-05-18] MEDS ORDERED: Ondansetron INJ* 2 MG/ML VIAL IV PRN (15:48)
[2018-05-18] MEDS ORDERED: oxyCODONE/Acetamin 5/325 MG* TAB PO PRN (15:48)
[2018-05-18] MEDS ORDERED: Magnesium Hydroxide LIQ* 30 ML UDC PO PRN (15:48)
[2018-05-18] MEDS ORDERED: Bisacodyl SUPP* 10 MG SUPP PR PRN (15:48)
[2018-05-18] MEDS ORDERED: Morphine VIAL* 4 MG/ML VIAL (1 ml vial) IV PRN (15:48)
[2018-05-18] MEDS ORDERED: diPHENhydraMINE IV* 50 MG/ML 1 ml VIAL (BENADRYL) IV PRN (15:48)
[2018-05-18] MEDS ORDERED: Cyclobenzaprine TAB* 10 MG PO PRN (15:48)
[2018-05-18] MEDS ORDERED: Acetaminophen TAB* 325 MG PO SCH (16:00)
[2018-05-18] MEDS: fentaNYL* 50 MCG/ML 2 ML VIAL (100 MCG VIAL) IV PRN ×2 (16:27→17:00)
--- NOTE | 2018-05-18 16:43 | RAD ---
INDICATION: Right knee arthroplasty COMPARISON: None TECHNIQUE: Portable AP and crosstable lateral views were obtained. FINDINGS: There is right knee arthroplasty. Both femoral and tibial components appear well seated. There is no overlying cooling jacket. IMPRESSION: POSTOPERATIVE RIGHT KNEE ARTHROPLASTY
[2018-05-18] MEDS ORDERED: Warfarin TAB(*) 6 MG PO ONE (17:00)
--- NOTE | 2018-05-18 17:24 | CONSULT ---
Subjective Date of Service: 05/18/18 Interval History: Patient admitted for elective R TKA for arthritis. Dr. Baugh has requested hospitalist consultation for co-management. Pt took her usual AM meds today and came for surgery. Surgery completed without any complications. Pt admits to pain R leg. Allergies Allergy/AdvReac Type Severity Reaction Status Date / Time Environmental Allergies Allergy Runny Nose Uncoded 05/18/18 11:27 Home Medications Medication Instructions Recorded Confirmed Type Atorvastatin Calcium [Lipitor] 10 mg PO QAM #0 03/26/13 05/18/18 History Fosinopril Sodium 10 mg PO QAM #0 03/26/13 05/18/18 History Multivitamin [Multivitamins] 1 cap PO QAM 11/16/17 05/18/18 History Acetaminophen/Diphenhydramine 1 tab PO QPM PRN 05/10/18 05/18/18 History [Tylenol Pm Ex-Strength Caplet] Aspirin [Aspir-Low] 81 mg PO QPM 05/10/18 05/18/18 History Fexofenadine (NF) [Mariia 180 180 mg PO QAM 05/10/18 05/18/18 History (NF)] Glucosam/Chondr/Collagn/Hyalur 3 cap PO QAM 05/10/18 05/18/18 History [Glucosamine & Chondroitin Cap] Family History: Findings - 3 siblings all of identified CT or sudden . Social History: Findings - Never smoked. No alcohol abuse. Lives with her who is her SDM. Past Medical History: Findings - 3 children, tubal ligation. Review of Systems - Measurements Intake and Output: Intake and Output Last 24 Hours 05/16/18 05/17/18 05/18/18 05/19/18 06:59 06:59 06:59 06:59 Intake Total 900 Output Total 150 Balance 750 Weight 190 lb Intake: IV Fluids 900 LR 900 Output: Stevens 150 - Review of Systems Constitutional Symptoms: Negative: Weight Gain, Weight Loss, Weakness, Fatigue, Fever, Night Sweats, Unexplained Falls, Other Dermatology: Positive: Normal HEENT: Positive: Normal Eyes: Positive: Normal Thyroid: Positive: Normal Pulmonary: Positive: Normal Gastroenterology: Positive: Normal, Anorexia Genitourinay - Female: Positive: Menopause Musculoskeletal: Positive: Joint Pain Endocrinology: Positive: Normal Hematologic/Lymphatic: Negative: Anemia, Easy Brusing, Hx Leukemia, Hx Lymphoma, Use of Anticoagulant, Use of Antiplatelet Drugs, Other Neurology: Positive: Normal Allergic/Immunologic: Negative: Hx Anaphylaxis, Hx Angioedema, Hx Environmental, Hx Seasonal, Athsma, Hx HIV, Immunocompromise, Swollen Glands LymphNodes, Other Objective Active Medications: Acetaminophen (Tylenol Tab*) 650 mg PO Q8H BENSON Bisacodyl (Dulcolax Supp*) 10 mg NC DAILY PRN PRN Reason: constipation Celecoxib (Celebrex Cap*) 200 mg PO ONCE ONE Stop: 05/18/18 12:13 Last Admin: 05/18/18 12:35 Dose: 200 mg Cyclobenzaprine HCl (Flexeril Tab*) 5 mg PO TID PRN PRN Reason: SPASMS Dexamethasone Sodium Phosphate (Decadron Iv*) 8 mg IV SLOW PU ONCE ONE Stop: 05/18/18 06:01 Last Admin: 05/18/18 12:24 Dose: 8 mg Dimenhydrinate (Dramamine Iv*) 25 mg IV PUSH ONCE PRN PRN Reason: NAUSEA/VOMITING Diphenhydramine HCl (Benadryl Iv*) 25 mg IV Q6H PRN PRN Reason: itching Docusate Sodium (Colace Cap*) 100 mg PO BID BENSON Enoxaparin Sodium (Lovenox(*)) 30 mg SUBCUT Q24H BENSON Famotidine (Pepcid Iv*) 20 mg IV ONCE ONE Stop: 05/18/18 06:01 Last Admin: 05/18/18 12:24 Dose: 20 mg Fentanyl Citrate (Fentanyl*) 50 mcg IV Q5M PRN PRN Reason: PAIN - MODERATE Last Admin: 05/18/18 17:00 Dose: 50 mcg Gabapentin (Neurontin Cap(*)) 600 mg PO ONCE ONE Stop: 05/18/18 12:13 Last Admin: 05/18/18 12:35 Dose: 600 mg Hydromorphone HCl (Dilaudid Inj*) 0.5 mg IV Q10M PRN PRN Reason: PAIN - SEVERE Lactated Ringer's (Lactated Ringers 1000 Ml Bag*) 1,000 mls @ 125 mls/hr IV PER RATE BENSON Last Admin: 05/18/18 12:24 Dose: 125 mls/hr Cefazolin Sodium/Dextrose (Kefzol 1 Gm In Dextrose Duplex (*)) 1 gm in 50 mls @ 200 mls/hr IVPB Q8H BENSON Stop: 05/19/18 08:14 Lactated Ringer's (Lactated Ringers 1000 Ml Bag*) 1,000 mls @ 100 mls/hr IV PER RATE BENSON Lactulose (Lactulose*) 30 ml PO Q6H PRN PRN Reason: constipation Lidocaine/Sodium Bicarbonate (Buffered Lidocaine 0.9% Syrin*) 0.2 ml INTRADERM ONCE ONE Stop: 05/17/18 14:31 Last Admin: 05/18/18 12:28 Dose: Not Given Magnesium Hydroxide (Milk Of Magnesia Liq*) 30 ml PO BID BENSON Magnesium Hydroxide (Milk Of Magnesia Liq*) 30 ml PO Q6H PRN PRN Reason: constipation Morphine Sulfate (Morphine Inj (Syringe)) 4 mg IV Q2H PRN PRN Reason: PAIN Multivitamins (Theragran Tab*) 1 tab PO DAILY [facility] Naloxone HCl (Narcan*) 0.08 mg IV Q2M PRN PRN Reason: severe induced resp depression Ondansetron HCl (Zofran Inj*) 4 mg IV Q6H PRN PRN Reason: nausea Oxycodone HCl (Roxycodone Tab*) 10 mg PO Q4H PRN PRN Reason: PAIN - SEVERE Oxycodone/Acetaminophen (Percocet 5/325 Tab*) 1 tab PO Q4H PRN PRN Reason: PAIN Oxycodone/Acetaminophen (Percocet 5/325 Tab*) 2 tab PO Q4H PRN PRN Reason: PAIN Warfarin Sodium (Coumadin Tab(*)) 6 mg PO ONCE@1700 ONE; Protocol Stop: 05/18/18 17:01 Vital Signs - 8 hr 05/18/18 05/18/18 05/18/18 11:29 15:43 15:44 Temperature 97.7 F Pulse Rate 70 79 78 Respiratory 16 Rate Blood Pressure 171/89 132/67 (mmHg) O2 Sat by Pulse 99 100 100 Oximetry 05/18/18 05/18/18 05/18/18 15:45 15:50 15:55 Temperature 98.6 F Pulse Rate 85 80 82 Respiratory 14 18 15 Rate Blood Pressure 142/69 131/76 (mmHg) O2 Sat by Pulse 100 100 100 Oximetry 05/18/18 05/18/18 05/18/18 16:00 16:05 16:10 Temperature Pulse Rate 82 80 81 Respiratory 16 Rate Blood Pressure 149/78 (mmHg) O2 Sat by Pulse 99 99 99 Oximetry 05/18/18 05/18/18 05/18/18 16:15 16:16 16:27 Temperature Pulse Rate 79 79 Respiratory 14 16 Rate Blood Pressure 142/73 (mmHg) O2 Sat by Pulse 99 98 Oximetry 05/18/18 05/18/18 05/18/18 16:30 16:45 17:00 Temperature 97.7 F Pulse Rate 81 Respiratory 19 14 Rate Blood Pressure 153/77 154/85 (mmHg) O2 Sat by Pulse 100 Oximetry 05/18/18 17:01 Temperature Pulse Rate 79 Respiratory 18 Rate Blood Pressure 112/64 (mmHg) O2 Sat by Pulse 99 Oximetry Oxygen Devices in Use Now: None Appearance: Mildly sedated in PACU. Supine on stretcher. Looks comfortable/ sedated. Eyes: No Scleral Icterus Neck: NL Appearance and Movements; NL JVP, No Thyroid Enlargement, Masses Respiratory: Symmetrical Chest Expansion and Respiratory Effort, Clear to Auscultation, Clear to Percussion Abdominal: NL Sounds; No Tenderness; No Distention, No Hepatosplenomegaly, - Extremities: No Edema, No Clubbing, Cyanosis, - - R knee in cooling device Skin: No Rash or Ulcers, No Nodules or Sclerosis, - Neurological: Alert and Oriented x 3, NL Sensation - mildly sedated Assessment/Plan - Billing Plan By Medical Problem: 1. HTN. Continue fosinopril (Pharmacy will substitute lisinopril) 2. HL Continue statin, ASA. 3. R TKA. Management per Dr. Baugh.
--- NOTE | 2018-05-18 17:56 | PN ---
Progress Note - Progress Note Date of Service: 05/18/18 Note: patient seen in recovery. alert and oriented. reports minimal pain in right knee. able to dorsi flex/plantar flex, 2+DP pulse and intact sensation.
[2018-05-18] MEDS: Aspirin EC TAB* 81 MG TAB.EC PO SCH (18:48)
[2018-05-18] MEDS: oxyCODONE TAB* 5 MG TAB PO PRN (18:48)
[2018-05-18] MEDS: Docusate CAP* 100 MG PO SCH (22:30)
[2018-05-18] MEDS: oxyCODONE/Acetamin 5/325 MG* TAB PO PRN (22:30)
[2018-05-18] MEDS: Magnesium Hydroxide LIQ* 30 ML UDC PO SCH (22:30)
[2018-05-18] MEDS: ceFAZolin 1 GM VIAL(*) 1 GM in NS 0.9% 50 ML* 50 ML IVPB SCH (22:31)
[2018-05-19] MEDS: Acetaminophen TAB* 325 MG PO SCH ×3 (03:03→17:41)
[2018-05-19] MEDS: ceFAZolin 1 GM VIAL(*) 1 GM in NS 0.9% 50 ML* 50 ML IVPB SCH ×2 (06:01→13:38)
[2018-05-19] MEDS: oxyCODONE/Acetamin 5/325 MG* TAB PO PRN ×4 (06:01→21:09)
[2018-05-19 06:51] LABS: Hematocrit 34 % (35-47); Hemoglobin 11.4 g/dl (12.0-16.0); Mean Platelet Volume 6.4 um3 (7.4-10.4); Platelet Count 252 10^3/ul (150-450)
[2018-05-19 06:56] LABS: INR 0.94 (0.77-1.02)
[2018-05-19 07:04] LABS: EGFR Non-African American 70.3 (>60)
[2018-05-19] MEDS: Magnesium Hydroxide LIQ* 30 ML UDC PO SCH ×2 (08:07→21:09)
[2018-05-19] MEDS: Docusate CAP* 100 MG PO SCH ×2 (08:07→21:09)
[2018-05-19] MEDS: Atorvastatin* 10 MG TAB PO SCH (08:07)
[2018-05-19] MEDS: Lisinopril TAB* 10 MG PO SCH (08:07)
[2018-05-19] MEDS: Cetirizine* 10 MG TAB PO SCH (08:08)
[2018-05-19] MEDS: Vitamin THERAPEUTIC TAB PO SCH (08:08)
[2018-05-19] MEDS: oxyCODONE TAB* 5 MG TAB PO PRN (09:33)
[2018-05-19] MEDS: Enoxaparin(*) 30 MG/0.3 ML SYR SUBCUT SCH (11:30)
--- NOTE | 2018-05-19 11:50 | OP ---
OPERATIVE REPORT: DATE OF OPERATION: 05/18/18. DATE OF : 48. SURGEON: Sallie Baugh MD RADIO JOURNALIST: TERRANCE Villanueva Mr. Jordan did help throughout the procedure with preparation of the knee, wound retraction, manipula tion of the knee, and wound closure. ANESTHESIOLOGIST: Dr. Fields. ANESTHESIA: General. PRE-OP DIAGNOSIS: Severe end-stage degenerative osteoarthritis of the right knee joint. POST-OP DIAGNOSIS: Severe end-stage degenerative osteoarthritis of the right knee joint. OPERATIVE PROCEDURE: Right total knee arthroplasty. TOURNIQUET TIME: 44 minutes. HARDWARE USED: [employer] cemented total knee orthoplasty hardware. Two packages of Simplex neal ne cement for the femur. A right size 6 narrow Legion femoral component. Posterior stabilized femor al component for size 5 Bety 2 tibia base plate right for the insert and 11 mm posterior stabilize r articular insert, size 5/6 and for the patella, 38 mm 3-peg all poly patella. COMPLICATIONS: None. SPECIMEN: Bone and cartilage from the right knee joint sent to pathology. ESTIMATED BLOOD LOSS: 300 mL. BRIEF HISTORY/INDICATIONS: Ms. Maguire is a 67-year-old female with 6 months of severe right knee pain. Radiograph showed [id number] arthritis. She failed conservative treatment with antiinflammatorie s, pain medications, intraarticular injections and physical therapy. Due to continued pain and decre ased quality of life, she elected to undergo right total knee arthroplasty. Informed consent was obt ained from the patient. She understood the risk of surgery included, but were not limited to bleedin g, infection, damage to nearby structure, continued pain, need for further surgery, intraoperative fr acture, nerve palsy, hardware failure or loosening, knee stiffness, loss of motion, stroke, heart att ack, blood clot and . She wished to proceed. INTRAOPERATIVE FINDINGS: Intraoperatively, the patient was noted to have severe end-stage arthritis, complete loss of cartilage along the medial and patellofemoral compartment. She had significant ost eophyte formation and subchondral sclerosis. DESCRIPTION OF PROCEDURE: Ms. Maguire was identified in the preanesthesia unit. Her right lower extremi ty was marked as a correct operative site. Informed consent was signed and placed in the chart. The p atient was taken to the operating room and placed under general anesthesia. A Stevens catheter was plac ed. A tourniquet was placed on the right thigh. Right lower extremity was prepped and draped in the usual sterile fashion. Preop time-out was made to correctly identify the patient side and site. Appr opriate perioperative antibiotics were given within 1 hour of incision. Tourniquet was inflated unti l tourniquet time for this procedure was 44 minutes. A midline incision was made with a 10 blade and carried down to the extensor mechanism. A new 10 lucila de was used to make a standard medial parapatellar arthrotomy. The patella was subluxed laterally. Electrocautery was used to subperiosteally elevate the soft tissue off the superomedial tibia to the mid sagittal plane. The knee was flexed up. Anterior horn of the lateral meniscus and ACL were danyelle ply released. A drill was used to enter the distal femur. Intramedullary distal femoral cutting guid e was pinned on the distal femur. Oscillating saw was used to make the distal femoral cut. Next, the external rotation guide was pinned on the distal femur and the distal femur was sized to a size 6. Size 6 multi-cutting jig was pinned on the distal femur. The oscillating saw was used to make the ap propriate 4 chamfer cuts. The PCL was completely released and the tibia was subluxed anteriorly. Extramedullary tibial cutting guide was pinned on the proximal tibia. The oscillating saw was used to make the proximal tibial cut perpendicular to the mechanical axis of the tibia. The bone was carefully removed. The knee was br ought out into full extension. There was good medial and lateral ligamentous balancing. The spacer block had good fit with the knee in full extension. Flexion and extension gaps were well balanced. The knee was flexed up. Lamina lens inspector was placed both medially and laterally. Any remaining menis cus was carefully removed using electrocautery. A curved osteotome was used to remove any posterior osteophytes. Tibial tray and drop catracho were placed and once again confirmed a satisfactory tibial cut . A right, size 6 narrow femoral trial was impacted onto the distal femur and had excellent fit. The b ox for the posterior stabilized implant was prepared using a reamer and box cut osteotome. A size 5 t ibial tray and a 11 mm insert trial was placed. The knee was taken through a range of motion. The kn ee had full extension to 130 degrees of flexion. There was satisfactory patellofemoral tracking. The patella was everted. A 9 mm of the patellar bone and cartilage was carefully removed using an os cillating saw. The patella was sized to a size 38. Three peg holes were drilled through the size 38 guide. A 38 trial patella was placed and the knee was taken through a range of motion. There was s atisfactory patellofemoral tracking. All trials were carefully removed. The tibia was subluxed anteriorly and sized to a size 5. A size 5 keel punch was used to prepare the proximal tibia. All bony cut surfaces were copiously irrigated with sterile saline and dried. Marilyn l implants were cemented into place starting with the tibia, followed by the femur and lastly the pat vera. An 11-mm insert trial was placed and the knee was taken through extension. The tourniquet wa s turned down at 44 minutes. Electrocautery was used to obtain meticulous hemostasis. The knee was copiously irrigated with sterile saline. Once the cement had fully cured, the insert trial was remov ed. Any extra cement was removed from around the capsule and hardware. Final insert chosen was an 1 1 mm posterior stabilizer articular insert size 5/6. This was locked into position on the tibial tra y. Stability of the insert was checked and rechecked and noted to be stable. The knee was once again irrigated. Extensor mechanism was closed using interrupted #1 Vicryl. The rest of the incision was closed in layered fashion using 0 and 2-0 Vicryl. The skin was closed using running 3-0 nylon sutur e. Sterile Xeroform, 4x4s, and Webril were used to cover the incision. Juan wrap and cold pack were placed over this. The patient's anesthesia was reversed without difficulty. She was taken to the [facility] in stable condition. Intended weightbearing will be weightbearing as tolerated. Intended DVT pro phylaxis will be Coumadin with a Lovenox bridge. [id number]/[facility] #: [id number]
--- NOTE | 2018-05-19 16:19 | PN ---
Subjective Date of Service: 05/19/18 Interval History: Pain control adequate. No BM since admission. No new c/o. Family History: Findings - 3 siblings all of identified PR or sudden . Social History: Findings - Never smoked. No alcohol abuse. Lives with her who is her SDM. Past Medical History: Findings - 3 children, tubal ligation. Objective Active Medications: Acetaminophen (Tylenol Tab*) 650 mg PO 0300,1100,1900 [facility] Last Admin: 05/19/18 10:53 Dose: Not Given Aspirin (Aspirin Ec Tab*) 81 mg PO QPM [facility] Last Admin: 05/18/18 18:48 Dose: 81 mg Atorvastatin Calcium (Lipitor*) 10 mg PO QAM [facility] Last Admin: 05/19/18 08:07 Dose: 10 mg Bisacodyl (Dulcolax Supp*) 10 mg CA DAILY PRN PRN Reason: constipation Cetirizine HCl (Zyrtec*) 10 mg PO QAM [facility]; Protocol Last Admin: 05/19/18 08:08 Dose: 10 mg Cyclobenzaprine HCl (Flexeril Tab*) 5 mg PO TID PRN PRN Reason: SPASMS Diphenhydramine HCl (Benadryl Iv*) 25 mg IV Q6H PRN PRN Reason: itching Docusate Sodium (Colace Cap*) 100 mg PO BID [facility] Last Admin: 05/19/18 08:07 Dose: 100 mg Enoxaparin Sodium (Lovenox(*)) 30 mg SUBCUT Q24H [facility] Last Admin: 05/19/18 11:30 Dose: 30 mg Lactated Ringer's (Lactated Ringers 1000 Ml Bag*) 1,000 mls @ 100 mls/hr IV PER RATE [facility] Last Admin: 05/19/18 04:54 Dose: 100 mls/hr Lactulose (Lactulose*) 30 ml PO Q6H PRN PRN Reason: constipation Lisinopril (Prinivil Tab*) 10 mg PO QAM [facility]; Protocol Last Admin: 05/19/18 08:07 Dose: 10 mg Magnesium Hydroxide (Milk Of Magnesia Liq*) 30 ml PO BID [facility] Last Admin: 05/19/18 08:07 Dose: 30 ml Magnesium Hydroxide (Milk Of Magnesia Liq*) 30 ml PO Q6H PRN PRN Reason: constipation Morphine Sulfate (Morphine Vial*) 4 mg IV Q2H PRN PRN Reason: PAIN Multivitamins (Theragran Tab*) 1 tab PO DAILY [facility] Last Admin: 05/19/18 08:08 Dose: 1 tab Ondansetron HCl (Zofran Inj*) 4 mg IV Q6H PRN PRN Reason: nausea Oxycodone HCl (Roxycodone Tab*) 10 mg PO Q4H PRN PRN Reason: PAIN - SEVERE Last Admin: 05/19/18 09:33 Dose: 10 mg Oxycodone/Acetaminophen (Percocet 5/325 Tab*) 1 tab PO Q4H PRN PRN Reason: PAIN Oxycodone/Acetaminophen (Percocet 5/325 Tab*) 2 tab PO Q4H PRN PRN Reason: PAIN Last Admin: 05/19/18 11:59 Dose: 2 tab Vital Signs - 8 hr 05/19/18 05/19/18 05/19/18 09:33 11:06 11:29 Temperature 98.0 F Pulse Rate 78 Respiratory 18 16 18 Rate Blood Pressure 107/41 (mmHg) O2 Sat by Pulse 97 Oximetry 05/19/18 05/19/18 11:59 15:40 Temperature Pulse Rate Respiratory 18 Rate Blood Pressure (mmHg) O2 Sat by Pulse 97 Oximetry Oxygen Devices in Use Now: None Appearance: Alert, partly up in bed. In good spirits. Looks comfortable. Eyes: No Scleral Icterus Respiratory: Symmetrical Chest Expansion and Respiratory Effort, Clear to Auscultation, Clear to Percussion Cardiovascular: NL Sounds; No Murmurs; No JVD, RRR, No Edema, - Extremities: No Edema, No Clubbing, Cyanosis, - - cooling device on R knee Skin: No Rash or Ulcers, No Nodules or Sclerosis, - Neurological: Alert and Oriented x 3, NL Sensation Result Diagrams: 05/19/18 06:23 05/19/18 06:23 Assess/Plan/Problems-Billing Plan By Medical Problem: 1. HTN. Continue fosinopril (Pharmacy will substitute lisinopril) 2. HL Continue statin, ASA. 3. R TKA. Management per Dr. Baugh. - Patient Problems (1) HTN (hypertension) Current Visit: Yes Status: Acute Code(s): I10 - ESSENTIAL (PRIMARY) HYPERTENSION SNOMED Code(s): 74318243 Comment: Continue lisinopril (take fosinopril at home). (2) Hyperlipidemia Current Visit: Yes Status: Acute Code(s): E78.5 - HYPERLIPIDEMIA, UNSPECIFIED SNOMED Code(s): 18148288 Comment: Continue ASA, statin. (3) Status post total right knee replacement Current Visit: Yes Status: Acute Code(s): Z96.651 - PRESENCE OF RIGHT ARTIFICIAL KNEE JOINT SNOMED Code(s): 8004296350831 Comment: 05/18/18. Warfarin per Dr. Baugh. Uncompllicated post-op course.
[2018-05-19] MEDS: Polyethylene Glycol 3350* 17 GM PACKET PO SCH ×2 (16:31→21:09)
--- NOTE | 2018-05-19 16:56 | PN ---
Progress Note - Progress Note Date of Service: 05/19/18 SOAP: Subjective: []Patient seen at bedside. She is feeling well with well controlled right knee pain. Denies chest pain, shortness of breath, dizziness, nausea. Objective: []General: Well appearing, NAD RLE: Right knee dressing CDI with no erythema surrounding. DF/PF intact. Sensation intact distally. DP2+ Bilateral lower extremities with calves supple and nontender without erythema, edema or palpable cords Assessment: []POD 1 sp right total knee arthroplasty Plan: []WBAT PT/OT Lovenox, coumadin 8 mg Vital Signs Temp 97.8 F 05/19/18 16:06 Pulse 79 05/19/18 16:06 Resp 16 05/19/18 16:31 BP 96/50 05/19/18 16:23 Pulse Ox 96 05/19/18 16:06 Intake & Output 05/18/18 05/19/18 05/19/18 18:59 06:59 18:59 Intake Total 1100 1531 1280 Output Total 300 450 200 Balance 800 1081 1080 Weight 190 lb Intake: IV Fluids 1100 981 705 ABX - CEFAZOLIN 55 LR 1100 981 650 IVPB 50 55 ABX - CEFAZOLIN 50 55 Oral 500 520 Output: Urine 200 Stevens 150 450 Estimated Blood Loss 150 Other: # Bowel Movements 0 Laboratory Last Values Hgb 11.4 g/dl (12.0-16.0) L 05/19/18 06:23 Hct 34 % (35-47) L 05/19/18 06:23 Plt Count 252 10^3/ul (150-450) 05/19/18 06:23 MPV 6.4 um3 (7.4-10.4) L 05/19/18 06:23 INR (Anticoag Therapy) 0.94 (0.77-1.02) 05/19/18 06:23 Sodium 138 mmol/L (135-145) 05/19/18 06:23 Potassium 4.1 mmol/L (3.5-5.0) 05/19/18 06:23 Chloride 102 mmol/L (101-111) 05/19/18 06:23 Carbon Dioxide 28 mmol/L (22-32) 05/19/18 06:23 Anion Gap 8 mmol/L (2-11) 05/19/18 06:23 BUN 17 mg/dL (6-24) 05/19/18 06:23 Creatinine 0.81 mg/dL (0.51-0.95) 05/19/18 06:23 Est GFR ( Amer) 85.1 (>60) 05/19/18 06:23 Est GFR (Non-Af Amer) 70.3 (>60) 05/19/18 06:23 BUN/Creatinine Ratio 21.0 (8-20) H 05/19/18 06:23 Glucose 121 mg/dL (70-100) H 05/19/18 06:23 Calcium 8.9 mg/dL (8.6-10.3) 05/19/18 06:23
[2018-05-19] MEDS ORDERED: Warfarin TAB(*) 4 MG PO ONE (17:00)
[2018-05-19] MEDS: Aspirin EC TAB* 81 MG TAB.EC PO SCH (17:21)
[2018-05-20] MEDS: oxyCODONE TAB* 5 MG TAB PO PRN ×2 (00:13→04:47)
[2018-05-20] MEDS: oxyCODONE/Acetamin 5/325 MG* TAB PO PRN ×2 (02:40→13:19)
[2018-05-20] MEDS: Acetaminophen TAB* 325 MG PO SCH ×2 (02:50→11:28)
[2018-05-20 05:48] LABS: Hematocrit 28 % (35-47); Hemoglobin 9.6 g/dl (12.0-16.0); Mean Platelet Volume 6.4 um3 (7.4-10.4); Platelet Count 185 10^3/ul (150-450)
[2018-05-20 06:02] LABS: INR 1.09 (0.77-1.02)
[2018-05-20] MEDS: Polyethylene Glycol 3350* 17 GM PACKET PO SCH (09:08)
[2018-05-20] MEDS: Magnesium Hydroxide LIQ* 30 ML UDC PO SCH (09:09)
[2018-05-20] MEDS: Lisinopril TAB* 10 MG PO SCH (09:09)
[2018-05-20] MEDS: Docusate CAP* 100 MG PO SCH (09:10)
[2018-05-20] MEDS: Atorvastatin* 10 MG TAB PO SCH (09:10)
[2018-05-20] MEDS: Vitamin THERAPEUTIC TAB PO SCH (09:10)
[2018-05-20] MEDS: Cetirizine* 10 MG TAB PO SCH (09:10)
--- NOTE | 2018-05-20 09:48 | PN ---
Progress Note - Progress Note Date of Service: 05/20/18 SOAP: Subjective: []Patient seen at bedside. She is well with 3/10 knee pain and desires to go home. Denies chest pain, shortness of breath, dizziness or nausea. Objective: []General: Well appearing, NAD RLE: Right knee dressing CDI with no erythema surrounding. DF/PF intact. Sensation intact distally. DP2+ Bilateral lower extremities with calves supple and nontender without erythema, edema or palpable cords Assessment: []POD 1 sp right total knee arthroplasty Plan: []WBAT PT/OT Lovenox, coumadin dosing in coming days 8,6,2,2 Vital Signs Temp 98.2 F 05/20/18 07:59 Pulse 82 05/20/18 07:59 Resp 18 05/20/18 09:11 BP 118/50 05/20/18 07:59 Pulse Ox 95 05/20/18 07:59 Intake & Output 05/19/18 05/20/18 05/20/18 18:59 06:59 18:59 Intake Total 1400 480 480 Output Total 200 650 100 Balance 1200 -170 380 Intake: IV Fluids 705 ABX - CEFAZOLIN 55 LR 650 IVPB 55 ABX - CEFAZOLIN 55 Oral 640 480 480 Output: Urine 200 650 100 Other: Estimated Void Large # Voids 1 Laboratory Last Values Hgb 9.6 g/dl (12.0-16.0) L 05/20/18 05:20 Hct 28 % (35-47) L 05/20/18 05:20 Plt Count 185 10^3/ul (150-450) 05/20/18 05:20 MPV 6.4 um3 (7.4-10.4) L 05/20/18 05:20 INR (Anticoag Therapy) 1.09 (0.77-1.02) H 05/20/18 05:20 Sodium 138 mmol/L (135-145) 05/19/18 06:23 Potassium 4.1 mmol/L (3.5-5.0) 05/19/18 06:23 Chloride 102 mmol/L (101-111) 05/19/18 06:23 Carbon Dioxide 28 mmol/L (22-32) 05/19/18 06:23 Anion Gap 8 mmol/L (2-11) 05/19/18 06:23 BUN 17 mg/dL (6-24) 05/19/18 06:23 Creatinine 0.81 mg/dL (0.51-0.95) 05/19/18 06:23 Est GFR ( Amer) 85.1 (>60) 05/19/18 06:23 Est GFR (Non-Af Amer) 70.3 (>60) 05/19/18 06:23 BUN/Creatinine Ratio 21.0 (8-20) H 05/19/18 06:23 Glucose 121 mg/dL (70-100) H 05/19/18 06:23 Calcium 8.9 mg/dL (8.6-10.3) 05/19/18 06:23
[2018-05-20 11:29] VITALS: BP 124/57
[2018-05-20] MEDS: Enoxaparin(*) 30 MG/0.3 ML SYR SUBCUT SCH (11:54)
== END 2018-05-20 13:40 | disposition home health service (06) | DRG 470 ==
LOC: AA 10:24 → SSU 18:05
PROVIDERS: ADMIT Orthopaedic Surgery Adult Reconstructive Orthopaedic Surgery; ATTEND Orthopaedic Surgery Adult Reconstructive Orthopaedic Surgery
PROC: 0SRC0J9 Replacement of Right Knee Joint with Synthetic Substitute, Cemented, Open Approach (ICD-10-PCS; principal; 2018-05-18 13:00)
DX: M17.11 Unilateral primary osteoarthritis, right knee (principal); I10 Essential (primary) hypertension; M25.461 Effusion, right knee; G89.29 Other chronic pain; M25.761 Osteophyte, right knee; M54.9 Dorsalgia, unspecified; E78.5 Hyperlipidemia, unspecified; Z80.1 Family history of malignant neoplasm of trachea, bronchus and lung; Z82.0 Family history of epilepsy and other diseases of the nervous system; Z98.51 Tubal ligation status; Z91.011 Allergy to milk products; Z80.9 Family history of malignant neoplasm, unspecified; Z82.49 Family history of ischemic heart disease and other diseases of the circulatory system; Z83.2 Family history of diseases of the blood and blood-forming organs and certain disorders involving the immune mechanism; Z72.89 Other problems related to lifestyle; Z78.0 Asymptomatic menopausal state
CPT/HCPCS: 36415; 80048; 85014; 85018; 85049; 85610; A9270-GY; G8978-GP-CI; G8979-GP-CH; G8987-GO-CI; G8988-GO-CI; G8989-GO-CI; J0690; J1100; J1650; J2250; J2405; J2795; J3010